=== PATIENT | male | born 1975 | race African-American/Black ===

== ENCOUNTER 2018-02-10 08:17 | Emergency (ER) | payer OTHER ==
[2018-02-10 08:31] VITALS: TEMP 98.3; BMI 20.7
[2018-02-10] MEDS ORDERED: SODIUM CHLORIDE 0.9% 1000 ML INFUS.BAG IV ONE (09:25)
[2018-02-10] MEDS ORDERED: ONDANSETRON 4 MG/2 ML VIAL IVPUSH ONE (09:25)
--- NOTE | 2018-02-10 09:25 | PDOC ---
History of Present Illness <Nereyda Gomez - Last Filed: 02/10/18 11:48> - General History Source: Patient Exam Limitations: No Limitations - History of Present Illness Initial Comments: 02/10/18 09:29 The patient is a 42M with no PMH who presents to the ER with complaints of nausea with decreased appetite. The patient states that for the past 3-4 days, he has felt weak and had no appetite with associated nausea. He states he has also had watery diarrhea. He denies any abdominal pain, CP, SOB, fevers, chills. He states that he was laying down yesterday evening, sat up, and felt lightheaded and short of breath so he decided to present to the ER today. <Sagar Faith - Last Filed: 02/10/18 12:34> - General Chief Complaint: Loss of Appetite Stated Complaint: HEAVY BREATHING/NOT EATING Time Seen by Provider: 02/10/18 08:56 Past History <Nereyda Gomez - Last Filed: 02/10/18 11:48> - Past Medical History COPD: No Thyroid Disease: No - Suicide/Smoking/Psychosocial Hx Smoking Status: Yes Smoking History: Current every day smoker Number of Cigarettes Smoked Daily: 10 Information on smoking cessation initiated: Yes 'Breaking Loose' booklet given: 02/10/18 Hx Alcohol Use: No Drug/Substance Use Hx: No Substance Use Type: None <Sagar Faith - Last Filed: 02/10/18 12:34> - Past Medical History Allergies/Adverse Reactions: Allergies Allergy/AdvReac Type Severity Reaction Status Date / Time No Known Allergies Allergy Verified 02/10/18 08:25 Home Medications: Ambulatory Orders No Home Medications 0 dose .ROUTE UTDICT 06/22/12 Review of Systems - Review of Systems Able to Perform ROS?: Yes Comments:: 02/10/18 10:01 GENERAL/CONSTITUTIONAL: Positive for weakness. No fever or chills. HEAD, EYES, EARS, NOSE AND THROAT: No change in vision. No ear pain or discharge. No sore throat. CARDIOVASCULAR: Positive for lightheadedness. No chest pain or palpitations. RESPIRATORY: Positive for SOB. No cough, wheezing, or hemoptysis. GASTROINTESTINAL: Positive for nausea and diarrhea. No constipation or abdominal pain. GENITOURINARY: No dysuria, frequency, hematuria, or change in urination. MUSCULOSKELETAL: No joint or muscle swelling or pain. No neck or back pain. SKIN: Positive for rash. No lesions. NEUROLOGIC: No headache, numbness, tingling, focal weakness, loss of consciousness, or change in strength/sensation. ENDOCRINE: No increased thirst. No abnormal weight change. HEMATOLOGIC/LYMPHATIC: No anemia, easy bleeding, or history of blood clots. ALLERGIC/IMMUNOLOGIC: No hives or skin allergy. Is the patient limited Canadian proficient: No <Sagar Faith - Last Filed: 02/10/18 12:34> *Physical Exam - Vital Signs Last Vital Signs Temp Pulse Resp BP Pulse Ox 98.3 F 66 20 96/63 99 02/10/18 08:25 02/10/18 08:25 02/10/18 08:25 02/10/18 08:25 02/10/18 08:25 <Nereyda Gomez - Last Filed: 02/10/18 11:48> - Vital Signs Last Vital Signs Temp Pulse Resp BP Pulse Ox 98.3 F 66 20 96/63 99 02/10/18 08:25 02/10/18 08:25 02/10/18 08:25 02/10/18 08:25 02/10/18 08:25 - Physical Exam Comments: 02/10/18 10:07 GENERAL: Well developed, well nourished. Awake and alert. No acute distress. HEENT: Normocephalic, atraumatic. Hearing grossly normal. Moist mucous membranes. PERRLA, EOMI. No conjunctival pallor. Sclera are non-icteric. NECK: Supple. Full ROM. No JVD. Carotid pulses 2+ and symmetric, without bruits. No thyromegaly. No lymphadenopathy. CARDIOVASCULAR: Regular rate and rhythm. No murmurs, rubs, or gallops. Distal pulses are 2+ and symmetric. PULMONARY: No evidence of respiratory distress. Lungs clear to auscultation bilaterally. No wheezing, rales or rhonchi. ABDOMINAL: Soft. Non-tender. Non-distended. No rebound or guarding. No organomegaly. Normoactive bowel sounds. GENITOURINARY: No CVA tenderness bilaterally. MUSCULOSKELETAL: Normal range of motion at all joints. No bony deformities or tenderness. EXTREMITIES: No cyanosis. No clubbing. No edema. No calf tenderness or swelling. SKIN: Diffuse purpuric rash over head and across chest, nonblanching. Warm and dry. Normal capillary refill. No rashes. No jaundice. NEUROLOGICAL: Alert, awake, appropriate. Cranial nerves 2-12 grossly intact. Normal speech. Gait is normal without ataxia. PSYCHIATRIC: Cooperative. Good eye contact. Appropriate mood and affect. <Sagar Faith - Last Filed: 02/10/18 12:34> Heart Score/ECG Review #1 ECG reviewed & interpreted by me at: 11:14 General ECG Interpretation: Sinus Rhythm, Normal Rate, Normal Intervals, No acute ischemic changes Compared to previous ECG there are: No significant change 02/10/18 11:14 NSR vent rate 60 AZ 154 QRS 94 QTc 382 No STD or LANG Early repol noted, unchanged No signs of acute ischemia. <Sagar Faith - Last Filed: 02/10/18 12:34> ED Treatment Course - LABORATORY CBC & Chemistry Diagram: 02/10/18 09:45 02/10/18 09:45 - ADDITIONAL ORDERS Additional order review: Laboratory Results 02/10/18 02/10/18 10:04 09:45 Sodium 141 Potassium 4.5 Chloride 103 Carbon Dioxide 31 Anion Gap 7 L BUN 11 Creatinine 0.9 Creat Clearance w eGFR > 60 Random Glucose 90 Calcium 9.3 Magnesium 2.4 Total Bilirubin 0.4 AST 34 ALT 29 Alkaline Phosphatase 92 Total Protein 8.3 H Albumin 4.3 Lipase 134 TSH 0.31 L 02/10/18 09:45 RBC 4.79 MCV 82.7 MCHC 33.1 RDW 14.2 MPV 9.8 Neutrophils % 50.5 D Lymphocytes % 33.5 Monocytes % 13.0 H Eosinophils % 2.1 Basophils % 0.9 - Medications Given in the ED: ED Medications Discontinued Medications Generic Name Dose Route Start Last Admin Trade Name Freq PRN Reason Stop Dose Admin Ondansetron HCl 4 mg 02/10/18 09:25 02/10/18 09:53 Zofran Injection IVPUSH 02/10/18 09:26 4 mg ONCE ONE Administration Sodium Chloride 1,000 ml 02/10/18 09:25 02/10/18 09:53 Normal Saline - IV 02/10/18 09:26 1,000 ml ONCE ONE Administration <Nereyda Gomez Last Filed: 02/10/18 11:48> - LABORATORY CBC & Chemistry Diagram: 02/10/18 09:45 02/10/18 09:45 <Sagar Faith - Last Filed: 02/10/18 12:34> Medical Decision Making - Medical Decision Making 02/10/18 11:15 The patient is a 42M with no PMH who presents to the ER with complaints of weakness and nausea x 4 days. 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 Will give fluids and zofran and reassess. EKG unremarkable. Pending labs and imaging. 02/10/18 12:28 CBC, CMP WNL. TSH slightly low at 0.31. CXR preliminary read is negative. Pt states he feels much better. We have scheduled him an appt with our PCP practice. Pt will f/u. <RiccardoargeliaSagar - Last Filed: 02/10/18 12:34> *DC/Admit/Observation/Transfer <Nereyda Gomez - Last Filed: 02/10/18 11:48> - Discharge Dispostion Decision to Admit order: No <Sagar Faith - Last Filed: 02/10/18 12:34> Diagnosis at time of Disposition: Weakness Nausea & vomiting Qualifiers: Vomiting type: unspecified Vomiting Intractability: non-intractable Qualified Code(s): R11.2 - Nausea with vomiting, unspecified - Discharge Dispostion Disposition: HOME Condition at time of disposition: Stable - Referrals Referrals: Rylan Lester MD [Primary Care Provider] - - Patient Instructions Printed Discharge Instructions: DI for Nausea -- Adult Additional Instructions: You were seen for nausea and weakness. Please keep your appointment at the [facility]. Please return to the ER if you have any signs or symptoms of chest pain, shortness of breath, uncontrollable fever, chills, nausea, vomiting, numbness, tingling, or weakness in any part of your body, changes in vision, or slurred speech. Please return to the ER if symptoms persist, worsen, or new symptoms arise.
[2018-02-10] MEDS ORDERED: ONDANSETRON 4 MG/2 ML VIAL ONE (09:37)
--- NOTE | 2018-02-10 09:47 | PDOC ---
Attending Attestation - HPI HPI: The patient is a 42 year old male, with PMHx of asthma, who presents with 4 days of weakness, loss of appetite and nausea. Patient states that yesterday he was lying in bed, got up quickly and suddenly felt short of breath and lightheaded. He also states that every time he brushes his teeth he feels like gagging which is not his norm. He notes recent weight loss and night sweats. He also notes dark spots across his forehead and chest for 1 year. He also states that he would like to be tested for STIs/STDs. He states that he is sexually active with multiple partners and wears condoms when he is not having intercourse with his fiance. He states that he usually goes to a clinic at [place] but would like to transition his care to [facility]. Denies recent fever. Social Hx: Current smoker (1/2 ppd), formerly incarcerated. <Nereyda Gomez - Last Filed: 02/10/18 11:14> - Resident Resident Name: Sagar Faith - ED Attending Attestation I have performed the following: I have examined & evaluated the patient, The case was reviewed & discussed with the resident, I agree w/resident's findings & plan, Exceptions are as noted - Physicial Exam PE: 02/10/18 10:2 Vitals: Triage Vital signs reviewed General Appearance: no acute distress, well nourished well developed, Head: Atraumatic, Eyes: Pupils equal reactive round, extraocular movement intact Ears: TM's normal bilaterally; Nose: Nares patent bilaterally;no nasal congestion Throat: Posterior oropharynx without erythema, mucous membranes moist, Neck: Supple;No Nucal rigidity Chest Wall: Nontender Cardiac: Regular rate and rhythym, no murmurs, no rubs, no gallops, Lungs: Clear to auscultation bilateral, good air movement bilaterally, Abdomen: Soft, non distended, normal bowel sounds, non tender to palpation Extremities: Full range of motion to all extremities, no cyanosis, clubbing, or edema Skin: Warm and dry, no rashes or lesions, no rash, no petechiae Psych: normal mood, normal affect - Medical Decision Making 02/10/18 10:29 42 years old with no significant past medical history active tobacco presents to the ED with 3 day history of generalized weakness. Patient also reports a weight loss over the last 6 days. Does follow at a clinic in [facility] but is looking to establish more permanent primary care. No travel no sick contacts no TB risk factors. No HIV risk factors the patient's are requesting to get evaluated for HIV Given tobacco use and malaise type symptoms we'll obtain labs chest x-ray and reassess Labs grossly within normal limits chest x-ray with no acute findings patient feels much better We have arranged patient follow-up this week in clinic. Findings, the need for follow-up, strict return instructions discussed with patient. <Aroldo Barba - Last Filed: 02/10/18 13:58> Heart Score/ECG Review - ECG Impressions Comment:: 02/10/18 10:31 EKG performed at 9:32 AM demonstrates sinus rhythm 59 bpm LA interval 154 QRS 94 , QTc 382. No ST elevations or T-wave inversions normal axis, J-point early repolarization Interpreted by me. <Aroldo Barba - Last Filed: 02/10/18 13:58>
[2018-02-10 09:53] LABS: BASO % 0.9 % (0-2.0); EOS % 2.1 % (0-4.5); HEMATOCRIT 39.6 % (35.4-49); HEMOGLOBIN 13.1 GM/dL (11.7-16.9); LYMPH % 33.5 % (8-40); MCH 27.3 pg (25.7-33.7); MCHC 33.1 g/dl (32.0-35.9); MEAN CELL VOLUME 82.7 fl (80-96); MEAN PLT VOLUME 9.8 fl (7.5-11.1); NEUT % 50.5 % (42.8-82.8); PLATELET COUNT 171 K/MM3 (134-434); RBC 4.79 M/mm3 (4.00-5.60); RDW 14.2 % (11.9-15.9); WHITE BLOOD COUNT 4.9 K/mm3 (4.0-10.0)
--- NOTE | 2018-02-10 09:54 | EKG ---
Test Reason : Blood Pressure : / mmHG Vent. Rate : 059 BPM Atrial Rate : 059 BPM P-R Int : 154 ms QRS Dur : 094 ms QT Int : 386 ms P-R-T Axes : 081 067 048 degrees QTc Int : 382 ms SINUS BRADYCARDIA WITH SINUS ARRHYTHMIA EARLY REPOLARIZATION OTHERWISE NORMAL ECG WHEN COMPARED WITH ECG OF 09-JUN-2016 09:58, NO SIGNIFICANT CHANGE WAS FOUND Confirmed by PAVAN UREÑA MD ([id number]) on 02/10/2018 9:54:07 AM Referred By: Confirmed By:PAVAN UREÑA MD
[2018-02-10 10:10] LABS: ALBUMIN 4.3 g/dl (3.4-5.0); ALK PHOS 92 U/L (45-117); ANION GAP 7 MMOL/L (8-16); BILIRUBIN,TOTAL 0.4 mg/dL (0.2-1.0); BLOOD UREA NITROGEN 11 mg/dL (7-18); CALCIUM 9.3 mg/dL (8.5-10.1); CHLORIDE 103 mmol/L (98-107); CO2 31 mmol/L (21-32); CREATININE 0.9 mg/dL (0.55-1.3); GLUCOSE,RANDOM 90 mg/dL (74-106); LIPASE 134 U/L (73-393); SGPT/ALT 29 U/L (13-61); SODIUM 141 mmol/L (136-145); TOT PROT 8.3 g/dl (6.4-8.2)
[2018-02-10 10:26] LABS: MAGNESIUM 2.4 mg/dL (1.8-2.4); POTASSIUM 4.5 mmol/L (3.5-5.1); SGOT/AST 34 U/L (15-37)
[2018-02-10 12:38] VITALS: BP 107/61; PULSE 79
== END 2018-02-10 12:38 | disposition home or self-care (01) ==
LOC: JER 08:17 → SUPCPDRO 08:17 → JER 12:38
PROC: 3E0337Z Introduction of Electrolytic and Water Balance Substance into Peripheral Vein, Percutaneous Approach (ICD-10-PCS; principal; 2018-02-10)
PROC: 3E033GC Introduction of Other Therapeutic Substance into Peripheral Vein, Percutaneous Approach (ICD-10-PCS; 2018-02-10)
DX: R53.1 Weakness (principal); R11.2 Nausea with vomiting, unspecified
CPT/HCPCS: 36415; 71046-TC-FY; 80053; 83690; 83735; 84443; 85025; 87389; 87491; 87591; 93005; 93010; 99283-25; J7030

== ENCOUNTER 2020-01-19 09:57 | Emergency (ER) | payer SELFPAY ==
[2020-01-19 10:05] VITALS: TEMP 98.4; BMI 21.5
[2020-01-19] MEDS ORDERED: NICOTINE 14 MG/24 HOURS TOPICAL PATCH TD ONE (11:29)
[2020-01-19] MEDS ORDERED: IBUPROFEN 400 MG TABLET (FP) PO ONE ×2 (11:29→11:50)
[2020-01-19] MEDS ORDERED: LACTATED RINGERS SOLUTION 1000 ML INFUS.BAG IV ONE (11:30)
--- NOTE | 2020-01-19 11:33 | PDOC ---
History of Present Illness - General Chief Complaint: Shortness of Breath Stated Complaint: SOB Time Seen by Provider: 01/19/20 11:06 History Source: Patient, Significant Other (Girlfriend at bedside for part of interview.) Exam Limitations: No Limitations - History of Present Illness Initial Comments: 44 y/o male presenting to [facility] ER complaining of three days of generalized f atigue and loss of appetite. Symptoms started after binge drinking on Saturday night. Denies frequent occurrence. Vomiting x4 episodes described as nonbloody. Denies fevers, chills, chest pain, SOB, abdominal pain, dysuria, hematuria, or change in bowel habits. Pt expressed concern for his liver. Noted his eyes are more yellow than normal. Was told he has a h/o of unknown liver problem while incarcerated. Failed to follow up. Social Hx: - Works in homeless snf. Last COVID exposure 2 weeks ago. Tested negative at that time - EtOH: Infrequent social drinker - Tobacco: Pack a day, has not smoked since Saturday - Street drugs: Marijuana, none recently - Denies h/o IVDA - H/o long term tattoos Past History - Travel History Traveled outside of the country in the last 30 days: No Close contact w/someone who was outside of country & ill: No - Medical History Allergies/Adverse Reactions: Allergies Allergy/AdvReac Type Severity Reaction Status Date / Time No Known Allergies Allergy Verified 01/19/20 10:00 Home Medications: Ambulatory Orders No Home Medications 0 dose .ROUTE UTDICT 06/22/12 Other medical history: Pt denies any past medical history - Surgical History Other Surgical History: Pt denies past surgical history - Immunization History Immunization Up to Date: No - Psycho-Social/Smoking History Smoking Status: Yes Smoking History: Current every day smoker Number of Cigarettes Smoked Daily: 10 Information on smoking cessation initiated: No 'Breaking Loose' booklet given: 02/10/18 - Substance Abuse Hx (Audit-C & DAST Scrn) How often the patient has a drink containing alcohol: Monthly or less Score: In Men: 4 or > Positive; In Women: 3 or > Positive: 1 Screen Result (Pos requires Nsg. Audit-10AR): Negative In the last yr the pt used illegal drug/Rx for NonMed reason: No Score: Yes response is considered Positive: 0 Screen Result (Positive result requires Nsg. DAST-10): Negative Review of Systems - Review of Systems Able to Perform ROS?: Yes Comments:: 10 point review of systems completed. All systems negative except as noted above. *Physical Exam - Vital Signs Last Vital Signs Temp Pulse Resp BP Pulse Ox 98.4 F 79 20 101/58 L 100 01/19/20 10:01 01/19/20 10:01 01/19/20 10:01 01/19/20 10:01 01/19/20 10:01 - Physical Exam Vital signs and nursing notes reviewed. Constitutional- Well-developed, well-nourished thin adult male in no acute di stress or obvious discomfort. Found semi-fowlers on hospital bed. Answered all questions appropriately and completely. Head- Normocephalic. No obvious external signs of trauma. Eyes- Sclerae mildly icteric. Conjunctiva moist and not injected. Ears- Hearing grossly intact. Nose- No nasal discharge. Neck- Supple, trachea is midline. Cardiovascular / Chest- Regular rate and regular rhythm. No murmur, rubs, clicks, or gallops. Peripheral pulses- radial pulses full. No pretibial edema. Respiratory- Breathing unlabored. Speaking in multi-word responses without pausing. Equal chest rise and fall. Clear to auscultation bilaterally. No stridor, no wheezing, no rhonchi. Gastrointestinal- abdomen is soft, non-tender, non-distended. No hepatosplenomegaly. No pulsatile masses. No overlying skin lesions or obvious signs of trauma. Neuro- Alert and oriented x4. Moving all four extremities spontaneously. No facial asymmetry. No slurred speech. Skin- Warm, dry, and intact. No bruising, rashes, or other lesions. No jaundice. Psych- Affect- appropriate. Mood- normal. Speech was non-labored, non- pressured. ED Treatment Course - LABORATORY CBC & Chemistry Diagram: 01/19/20 12:15 01/19/20 12:15 - RADIOLOGY Radiology Studies Ordered: Category Date Time Status CHEST X-RAY PORTABLE* [RAD] Stat Radiology 01/19/20 10:30 Completed Medical Decision Making - Medical Decision Making 44 y/o male presenting with generalized fatigue and loss of appetite x3 days. Possible COVID exposure though tested negative. Afebrile. Vitals unremarkable for hypotension or tachycardia. Physical exam as described above. Suspect likely combinating acute EtOH withdrawal coupled with tobacco withdrawal and increased life stress. Ordered Motrin, LR IVFB, and Nicotine patch for symptom relief. 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 Noted triage complaints including loss of taste. Pt reports he misunderstood the question. Really meant that he had no appetite. Verbally consented to HIV testing. Low suspicion. Reviewed laboratory data. No clinically significant derangement noted. 19 Jan 2020 14:02 PM Pt reassessed. Reports feeling much better. Repeat abdominal exam unremarkable for acute abdominal signs. Discussed physical exam findings and laboratory data with pt. Answered all questions. Provided return precautions. pt expressed verbal understanding and agreement with plan to discharge home with outpatient follow up. Provided copies of todays results. 19 Jan 2020 15:48 PM Telephone conversation with pt. Notified him of the negative HIV result. Case discussed with ED Attending Dr. Marte. Alfredo Tabor M.D., PGY3 Emergency Medicine Residency Discharge - Discharge Information Problems reviewed: Yes Clinical Impression/Diagnosis: Weakness Nausea & vomiting Qualifiers: Vomiting type: unspecified Vomiting Intractability: non-intractable Qualified Code(s): R11.2 - Nausea with vomiting, unspecified Condition: Good Disposition: HOME - Admission No - Follow up/Referral Referrals: Bita Gooden MD [Staff Physician] - CallBack Reminder: COVID - Patient Discharge Instructions Patient Printed Discharge Instructions: DI for Vomiting -- Adult Additional Instructions: You were seen today for generalized fatigue and loss of appetite. This is probably related to drinking on Saturday, not smoking cigarettes for several days, and your emotional stress. Your blood work did not show any significant abnormalities. Your COVID and HIV tests are pending. The hospital will call you if they are positive. If the HIV test is positive, you will need to return to have another sample of blood drawn to confirm the result. Continue to stay well hydrated over the next few days. You should follow up with a primary care physician. I have placed a referral for Dr. Gooden. You will need to call to make an appointment. Return to the ED for new or worsening symptoms. Print Language: CZECH - Post Discharge Activity Work/Back to School Note: Back to Work
--- NOTE | 2020-01-19 11:51 | PDOC ---
Documentation entered by Anant Cole SCRIBE, acting as scribe for Bita Marte MD. Bita Marte MD: This documentation has been prepared by the scribe, Anant Cole SCRIBE, under my direction and personally reviewed by me in its entirety. I confirm that the documentation accurately reflects all work, treatment, procedures, and medical decision making performed by me. Attending Attestation - Resident Resident Name: Alfredo Tabor - ED Attending Attestation I have performed the following: I have examined & evaluated the patient, The case was reviewed & discussed with the resident, I agree w/resident's findings & plan, Exceptions are as noted - HPI HPI: 44 yo M no known PMH (however, may possibly have liver problems, but has not followed up since he was told years ago) presents with fatigue, poor appetite since he drank heavily at a alliance party over the weekend. Denies SOB, fever, cough. No recent illness. He denies any change in sense of smell or taste (he states he misunderstood the triage questions). - Physicial Exam PE: 01/19/20 11:14 GENERAL: Awake, alert, and fully oriented, in no acute distress HEAD: No signs of trauma EYES: PERRLA, EOMI, sclera anicteric, conjunctiva clear ENT: Auricles normal inspection, hearing grossly normal, nares patent, oropharynx clear without exudates. Moist mucosa NECK: Normal ROM, supple, no lymphadenopathy, JVD, or masses LUNGS: Breath sounds equal, clear to auscultation bilaterally. No wheezes, and no crackles HEART: Regular rate and rhythm, normal S1 and S2, no murmurs, rubs or gallops ABDOMEN: Soft, nontender, normoactive bowel sounds. No guarding, no rebound. No masses EXTREMITIES: Normal range of motion, no edema. No clubbing or cyanosis. No cords, erythema, or tenderness NEUROLOGICAL: Cranial nerves II through XII grossly intact. Normal speech, normal gait SKIN: Warm, Dry, normal turgor, no rashes or lesions noted. - Medical Decision Making 01/19/20 11:40 Pt with poor appetite and fatigue for the past 3-4 days after drinking heavily at a BBQ over the weekend. Will check labs, CXR, and swab for COVID. Likely DC if labs normal, as he is afebrile and no hypoxia. Discharge - Discharge Information Problems reviewed: Yes Clinical Impression/Diagnosis: Weakness Nausea & vomiting Qualifiers: Vomiting type: unspecified Vomiting Intractability: non-intractable Qualified Code(s): R11.2 - Nausea with vomiting, unspecified Condition: Good Disposition: HOME - Follow up/Referral Referrals: Bita Gooden MD [Staff Physician] - CallBack Reminder: COVID - Patient Discharge Instructions Patient Printed Discharge Instructions: DI for Vomiting -- Adult Additional Instructions: You were seen today for generalized fatigue and loss of appetite. This is probably related to drinking on Saturday, not smoking cigarettes for several days, and your emotional stress. Your blood work did not show any significant abnormalities. Your COVID and HIV tests are pending. The hospital will call you if they are positive. If the HIV test is positive, you will need to return to have another sample of blood drawn to confirm the result. Continue to stay well hydrated over the next few days. You should follow up with a primary care physician. I have placed a referral for Dr. Gooden. You will need to call to make an appointment. Return to the ED for new or worsening symptoms. Print Language: MAORI - Post Discharge Activity Work/Back to School Note: Back to Work
[2020-01-19 13:15] LABS: BASO % 0.4 % (0-2.0); EOS % 1.1 % (0-4.5); HEMATOCRIT 40.5 % (35.4-49); HEMOGLOBIN 13.2 GM/dL (11.7-16.9); LYMPH % 27.2 % (8-40); MCH 27.6 pg (25.7-33.7); MCHC 32.6 g/dl (32.0-35.9); MEAN CELL VOLUME 84.5 fl (80-96); MEAN PLT VOLUME 10.5 fl (7.5-11.1); MONO % 10.4 % (3.8-10.2); NEUT % 60.9 % (42.8-82.8); PLATELET COUNT 168 K/MM3 (134-434); RBC 4.79 M/mm3 (4.00-5.60); RDW 13.9 % (11.9-15.9); WHITE BLOOD COUNT 6.7 K/mm3 (4.0-10.0)
[2020-01-19 13:24] LABS: ALBUMIN 4.1 g/dl (3.4-5.0); BILIRUBIN,TOTAL 0.8 mg/dL (0.2-1); BLOOD UREA NITROGEN 9.2 mg/dL (7-18); CALCIUM 9.5 mg/dL (8.5-10.1); POTASSIUM 4.4 mmol/L (3.5-5.1)
[2020-01-19 14:23] VITALS: BP 114/61; PULSE 58
--- NOTE | 2020-01-20 10:26 | EKG ---
Test Reason : Blood Pressure : / mmHG Vent. Rate : 052 BPM Atrial Rate : 052 BPM P-R Int : 146 ms QRS Dur : 088 ms QT Int : 392 ms P-R-T Axes : 068 067 045 degrees QTc Int : 364 ms SINUS BRADYCARDIA OTHERWISE NORMAL ECG WHEN COMPARED WITH ECG OF 10-FEB-2018 09:32, NO SIGNIFICANT CHANGE WAS FOUND Confirmed by MD Santana Daniel ([id number]) on 01/20/2020 10:26:15 AM Referred By: Confirmed By:Saud Santana MD
== END 2020-01-19 14:23 | disposition home or self-care (01) ==
LOC: JER 09:57
DX: R53.1 Weakness (principal); R11.2 Nausea with vomiting, unspecified
CPT/HCPCS: 36415; 71045-TC-FY; 80053; 85025; 87389; 93005; 93010; 99285-25; U0003

== ENCOUNTER 2021-02-01 19:30 | Emergency (ER) | payer OTHER ==
[2021-02-01 19:38] VITALS: BP 117/63; PULSE 62; TEMP 97; BMI 22.1
[2021-02-01 21:02] LABS: BASO % 1.1 % (0-2.0); EOS % 2.8 % (0-4.5); HEMATOCRIT 38.5 % (35.4-49); HEMOGLOBIN 12.7 GM/dL (11.7-16.9); LYMPH % 41.3 % (8-40); MCH 27.3 pg (25.7-33.7); MCHC 33.1 g/dl (32.0-35.9); MEAN CELL VOLUME 82.6 fl (80-96); MEAN PLT VOLUME 9.9 fl (7.5-11.1); MONO % 10.2 % (3.8-10.2); NEUT % 44.6 % (42.8-82.8); PLATELET COUNT 174 10^3/uL (134-434); RBC 4.66 M/mm3 (4.00-5.60); WHITE BLOOD COUNT 5.9 K/mm3 (4.0-10.0)
[2021-02-01 21:07] LABS: INR 1.25 (0.83-1.09); PROTHROMBIN TIME (PATIENT) 15.3 SEC (9.7-13.0)
[2021-02-01 21:10] LABS: ACTIVATED PTT 29.9 SECONDS (25.2-36.5)
[2021-02-01] MEDS ORDERED: SODIUM CHLORIDE 0.9% 500 ML INFUS.BAG IV ONE (21:15)
[2021-02-01 21:25] LABS: CHLORIDE 105 mmol/L (98-107); SODIUM 141 mmol/L (136-145)
[2021-02-01 21:27] LABS: CALCIUM 9.4 mg/dL (8.5-10.1)
[2021-02-01 21:28] LABS: ALBUMIN 4.5 g/dl (3.4-5.0); ANION GAP 2 MMOL/L (8-16); BLOOD UREA NITROGEN 8.2 mg/dL (7-18); CO2 34 mmol/L (21-32); GLUCOSE,RANDOM 75 mg/dL (74-106); MAGNESIUM 2.3 mg/dL (1.8-2.4)
[2021-02-01 21:31] LABS: CREATININE 0.9 mg/dL (0.55-1.3); SGOT/AST 30 U/L (15-37); SGPT/ALT 18 U/L (13-61)
[2021-02-01 21:32] LABS: BILIRUBIN,TOTAL 0.5 mg/dL (0.2-1); TOT PROT 8.4 g/dl (6.4-8.2)
[2021-02-01 21:33] LABS: ALK PHOS 91 U/L (45-117)
== END 2021-02-01 22:55 | disposition left against medical advice (07) ==
LOC: JER 19:30
DX: R53.1 Weakness (principal); R07.9 Chest pain, unspecified
CPT/HCPCS: 36415; 71046-TC-FY; 80053; 82550; 82553; 83735; 84484; 85025; 85610; 85730; 93005; 93010; 99284-25